=== PATIENT | male | born 1935 | race Caucasian/White ===

== ENCOUNTER 2021-02-19 19:40 | Emergency (ER) | payer MEDICARE, OTHER, SELFPAY ==
--- NOTE | ~2021-02-19 | CT_ITS ---
EXAMINATION: CT cervical spine wo con DATE: 02/19/2021 20:24 INDICATION: Neck pain post fall down stairs TECHNIQUE: Computed tomography (CT) of the cervical spine was performed without intravenous contrast. Automated exposure control and iterative reconstruction technique were employed. The dose-length pro duct was 481.28 mGy-cm. COMPARISON: None FINDINGS: Alignment is normal. Vertebral body heights are normal. No fractures. Severe atlantoaxial osteoarthri tis. Mild disc height loss at C5-C6, C6-C7 T2-T3 and T3-T4. Bilateral multilevel severe cervical face t osteoarthritis and mild to moderate uncovertebral osteoarthritis most prominent at C3-C4 and C4-C5. Together this contributes to mild cervical neural foraminal stenosis at a few levels on both the lef t and right. Atherosclerotic calcific a cyst at the bilateral carotid bulbs. Cervical soft tissues ar e otherwise unremarkable. IMPRESSION: 1. Mild cervical spondylosis. No acute osseous abnormality. Reviewed, dictated and finalized at location A. DBAND ENGINEER
--- NOTE | ~2021-02-19 | XR_ITS ---
EXAMINATION: XR knee RT 3V DATE: 02/19/2021 20:30 INDICATION: Right knee pain and swelling post fall down stairs TECHNIQUE: Anteroposterior, oblique, sunrise and crosstable lateral views of the right knee were obta ined COMPARISON: None. FINDINGS: Alignment is normal. No fracture. 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 Of note joint space narrowing can be underestimated on nonweightbeari ng imaging. No joint effusion/layering lipohemarthrosis. Relatively dense prepatellar soft tissue swe lling with given history of trauma likely represents a small hematoma. IMPRESSION: 1. Likely prepatellar hematoma. No acute osseous abnormality. 2. Tricompartmental osteoarthritis with mild to moderate joint space narrowing in the medial and wagner llofemoral compartments. Reviewed, dictated and finalized at location A. TY BRAND INSPECTOR IMPRESSION: 1. Likely prepatellar hematoma. No acute osseous abnormality. 2. Tricompartmental osteoarthritis with mild to moderate joint space narrowing in the medial and patellofemoral compartments.
--- NOTE | ~2021-02-19 | XR_ITS ---
EXAMINATION: XR ribs LT 2V w CXR 2V DATE: 02/19/2021 20:30 INDICATION: Posterior left lower rib pain post fall TECHNIQUE: A frontal inspiratory view of the chest and 3 views of the left ribs were obtained. COMPARISON: Chest radiograph dated 01/27/2016 FINDINGS: No rib fractures. Lung volumes remain small. Mild bibasilar opacities and favor atelectasis over pneu monia. No pulmonary edema, pleural effusion or pneumothorax. IMPRESSION: 1. No rib fracture. 2. Small lung volumes with mild bibasilar atelectasis. Reviewed, dictated and finalized at location A. OELECTRONICS TECHNICIAN
--- NOTE | ~2021-02-19 | CT_ITS ---
EXAMINATION: CT brain wo con DATE: 02/19/2021 20:24 INDICATION: Head and neck pain post fall down stairs TECHNIQUE: Computed tomography (CT) of the head was performed without intravenous contrast. Sagittal and coronal reconstructions were performed. The mA was adjusted according to patient size. Iterative reconstruction technique was employed. The dose-length product was 681.00 mGy-cm. COMPARISON: None FINDINGS: Likely chronic nasal bone fractures with the nasal bones deviated slightly towards the right and with out evident associated soft tissues welling to suggest acute injury. No other fractures identified. N o acute intracranial hemorrhage, acute infarction or abnormal extra axial fluid collection. There is mild scattered white matter hypoattenuation consistent with chronic small vessel ischemic disease. Sy mmetric prominence of the sulci and ventricles consistent with moderate age-appropriate diffuse cereb ral volume loss. No mass/mass effect. Changes of bilateral intraocular lens replacement. The orbits, paranasal sinuses and mastoid air cells are normal. Intracranial calcified cerebral atherosclerosis i s noted. IMPRESSION: 1. No acute fracture or acute intracranial process. 2. Age-related changes including moderate diffuse volume loss and mild scattered white matter hypoatt enuation consistent with chronic small vessel ischemic disease. Reviewed, dictated and finalized at location A. WASHER IMPRESSION: 1. No acute fracture or acute intracranial process. 2. Age-related changes including moderate diffuse volume loss and mild scattere d white matter hypoattenuation consistent with chronic small vessel ischemic di sease.
[2021-02-19 19:43] VITALS: BP 179/82; PULSE 88; RESP 18; TEMP 36.3; O2SAT 100
--- NOTE | 2021-02-19 20:06 | ED.FALL ---
HPI - Fall General Chief Complaint: Fall Stated Complaint: Fall Time Seen by Provider: 02/19/21 19:53 Source: patient History of Present Illness HPI Narrative: Patient presents after a fall. Patient reports he was walking down the steps and lost his balance. Reports is not unusual for him because he has terrible balance and he fell down 4 steps. Reports he struck his head on the brick he is on a blood thinner he was concerned and so family came to the ER for evaluation. Denies any loss of consciousness he denies any headache he denies any focal numbness or weakness. Reports his primary area of pain is the left side of his mid back and his right knee. Pain is worse with deep inspiration and using his right knee there is no radiation. Denies any shortness of breath, lightheadedness or dizziness. He denies any chest pain or shortness of breath prior to the fall. Related Data Allergies Allergy/AdvReac Type Severity Reaction Status Date / Time No Known Allergies Allergy Mild Verified 05/12/10 11:54 Review of Systems Review of Systems: CONSTITUTIONAL: Denies fever, chills, or sweats. EYES: Denies visual changes, redness, or discharge. ENT: Denies rhinorrhea, congestion, sore throat, or otalgia. CARDIOVASCULAR: Denies chest pain, palpitations, or edema. RESPIRATORY: Denies cough or dyspnea. GASTROINTESTINAL: Denies abdominal pain, nausea, vomiting, or diarrhea. GENITOURINARY: Denies dysuria or hematuria. SKIN: Denies rash or itching. MUSCULOSKELETAL: Reports mid left back pain and right knee pain NEUROLOGIC: Denies headache, numbness, dizziness, or weakness. PSYCHIATRIC: Denies anxiety or depression. All systems reviewed & are unremarkable except as noted in HPI and below PMFSH Past Medical History Medical History (Updated 02/19/21 @ 20:57 by Garcia Albarran MD) Hypertension Social History Social History (Updated 02/19/21 @ 20:09 by Garcia Albarran MD) Substance use: never Exam Narrative: GENERAL: Well-appearing, well-nourished, and in no acute distress. HEAD: Normocephalic, large superficial abrasion on the forehead EYES: PERRLA and EOMI. ENT: Nares clear, no rhinorrhea or epistaxis. Mucous membranes moist. No fractured teeth NECK: Supple. No masses. No midline neck pain CHEST: Clear to auscultation. No respiratory distress. No wheezes rales or rhonchi HEART: Regular rate and rhythm. No murmur heard. Normal peripheral pulses. ABDOMEN: Soft, nontender, nondistended, normal active bowel sounds. EXTREMITIES: Normal range of motion. Minimal diffuse pain on the right knee no obvious deformity or focal knee pain Back: Lateral mid back pain around ribs 9 through 12 no obvious deformity no crepitus no ecchymoses SKIN: Warm, dry, no rash. NEURO: No focal deficits. Alert and oriented x3. PSYCH: Normal mood and affect. Course Reevaluation(s) Reevaluation #1: Patient resting comfortably is ambulating without difficulty imaging reviewed with patient. Patient comfortable outpatient plan. Date: 02/19/21 Time: 20:55 Vital Signs Vital signs: Vital Signs Temperature 36.3 C L 02/19/21 19:43 Pulse Rate 88 02/19/21 19:43 Respiratory Rate 18 02/19/21 19:43 Blood Pressure 179/82 H 02/19/21 19:43 Pulse Oximetry 100 02/19/21 19:43 Temperature 36.3 C L 02/19/21 19:43 Pulse Rate 80 02/19/21 21:11 Respiratory Rate 18 02/19/21 21:11 Blood Pressure 115/69 02/19/21 21:11 Pulse Oximetry 100 02/19/21 21:11 MDM - Fall MDM Narrative Medical decision making narrative: H&P as above, vss, pt looks clinically well, exam superficial abrasion no focal neurological deficits soft tissue tenderness, imaging unremarkable for acute process, additional labs/img considered, symptomatic relief available as needed, on reevaluation pt continues to looks clinically well. Suspect mechanical event with soft tissue injuries, dns intracranial hemorrhage, fracture, cord compromise, pneumothorax. plan to tx/monitor as op w/
[2021-02-19 20:47] VITALS: PULSE 81; RESP 16; O2SAT 98
[2021-02-19 21:11] VITALS: BP 115/69; PULSE 80; RESP 18; O2SAT 100
== END 2021-02-19 21:13 | disposition home or self-care (01) ==
PROVIDERS: Emergency Provider Emergency Medicine; PCP Otolaryngology
DX: S20.222A Contusion of left back wall of thorax, initial encounter (principal); S00.81XA Abrasion of other part of head, initial encounter; I10 Essential (primary) hypertension; M47.812 Spondylosis without myelopathy or radiculopathy, cervical region; M17.11 Unilateral primary osteoarthritis, right knee; Z79.01 Long term (current) use of anticoagulants; W10.9XXA Fall (on) (from) unspecified stairs and steps, initial encounter
CPT/HCPCS: 70450; 71046; 71100; 72125; 73562; 99284

== ENCOUNTER 2022-11-29 09:22 | Outpatient (CLI) | payer MEDICARE, SELFPAY ==
[2022-11-29 15:16] LABS: Basophils Absolute Auto 0.1 K/mm3 (0.0-0.1); Basophils Percent Auto 0.8 % (0.2-1.2); Eosinophils Absolute Auto 0.2 K/mm3 (0-0.3); Eosinophils Percent Auto 2.4 % (0-4.4); Hematocrit 43.9 % (42.0-52.0); Hemoglobin 14.6 g/dL (14.0-18.0); Immature Granulocyte Absolute 0.02 K/mm3 (0.00-0.031); Immature Granulocyte Percent A 0.3 % (0-0.5); Lymphocytes Absolute Auto 2.92 K/mm3 (0.9-3.2); Lymphocytes Percent Auto 38.3 % (18.3-44.2); Mean Corpuscular HGB Conc 33.3 g/dl (32-36); Mean Corpuscular Hemoglobin 32.2 pg (26-34); Mean Corpuscular Volume 96.9 fl (80-100); Mean Platelet Volume 12.1 fl (7.4-10.4); Monocytes Absolute Auto 0.6 K/mm3 (0.1-0.6); Monocytes Percent Auto 8.1 % (2.6-8.5); Neutrophils Absolute Auto 3.8 K/mm3 (1.3-6.7); Neutrophils Percent Auto 50.1 % (45.5-73.1); Platelet Count Result 204 k/mm3 (150-375); Red Blood Count 4.53 M/mm3 (4.6-6.20); Red Cell Distribution Width 13.1 % (11.5-14.5); White Blood Count 7.6 K/mm3 (4.5-10.0)
[2022-11-29 15:58] LABS: Alanine Aminotransferase 27 U/L (6-50); Albumin Level 4.4 g/dL (3.5-5.1); Alkaline Phosphatase 114 U/L (38-126); Anion Gap 9 mmol/L (8-16); Aspartate Amino Transferase 36 U/L (17-59); Bilirubin,Total 1.1 mg/dL (0.2-1.3); Blood Urea Nitrogen 21 mg/dL (9-20); Calcium 9.1 mg/dL (8.4-10.2); Carbon Dioxide 29 mmol/L (22-30); Chloride 103 mmol/L (98-107); Cholesterol 189 mg/dL (0-200); Creatine Kinase 94 U/L (55-170); Erythrocyte Sedimentation Rate 21 mm/hr (0-20); Estimated Glomerular Filt Rate > 60; Glucose 198 mg/dL (65-110); HDL Direct 39 mg/dL; Potassium 4.1 mmol/L (3.4-5.0); Sodium 141 mmol/L (137-145); Triglycerides 196 mg/dL (<150)
[2022-11-29 16:13] LABS: LDL Cholesterol Direct 101 mg/dL
[2022-11-29 19:12] LABS: Creatinine Urine 181.3 mg/dL
[2022-11-29 19:15] LABS: Microalbumin Urine Random 39.9 mg/L (0-16.7)
[2022-11-29 19:36] LABS: Hemoglobin A1C 8.3 % (<5.7)
== END 2022-11-29 09:23 | disposition home or self-care (01) ==
PROVIDERS: PCP Internal Medicine; Visit Provider Internal Medicine
DX: E11.9 Type 2 diabetes mellitus without complications (principal); I10 Essential (primary) hypertension; I48.91 Unspecified atrial fibrillation; R26.9 Unspecified abnormalities of gait and mobility; Z79.01 Long term (current) use of anticoagulants; Z79.4 Long term (current) use of insulin; M25.50 Pain in unspecified joint; M62.81 Muscle weakness (generalized)
CPT/HCPCS: 36415; 80053; 80061; 82043; 82550; 83036; 84443; 85025; 85652

== ENCOUNTER 2022-11-29 09:48 | Outpatient (CLI) | payer MEDICARE, SELFPAY ==
--- NOTE | ~2022-11-29 | XR_ITS ---
AP and lateral views of the bilateral hips Clinical history: Pain Findings: No acute fracture or dislocation is seen. Osseous there is severe osteoarthritis of the rig ht hip joint, with joint space narrowing, osteophyte formation, and reactive sclerosis. There is mild to moderate degenerative change of the left hip joint.. Soft tissues are unremarkable. 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 Mild to moderate degenerative change of the left hip joint. Reviewed, dictated and finalized at location M. 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 Mild to moderate degenerative change of the left hip joint.
--- NOTE | ~2022-11-29 | XR_ITS ---
Right Knee Technique: AP and lateral views were obtained. Clinical History: Pain Findings: No fracture or dislocation is seen. There is mild spurring at the medial joint line and pat geri. There is probable mild medial compartment narrowing. Soft tissues are unremarkable. No joint ef fusion is seen. Impression: Mild to moderate degenerative change, as above. Reviewed, dictated and finalized at location . Impression: Mild to moderate degenerative change, as above.
--- NOTE | ~2022-11-29 | XR_ITS ---
Left Knee Technique: AP and lateral views were obtained. Clinical History: Pain Findings: No fracture or dislocation is seen. There is mild tricompartmental spurring. There is media l compartment narrowing Soft tissues are unremarkable. No joint effusion is seen. Impression: Mild to moderate degenerative change, as above. Reviewed, dictated and finalized at location . Impression: Mild to moderate degenerative change, as above.
--- NOTE | ~2022-11-29 | XR_ITS ---
Thoracic spine: Clinical Indication: Back pain AP and lateral views were performed. No fracture is seen. There is normal alignment of the vertebrae. The intervertebral disc spaces appe ar normal. Paravertebral soft tissues appear normal. Impression: No significant abnormalities noted. Reviewed, dictated and finalized at [facility]. Impression: No significant abnormalities noted.
== END 2022-11-29 09:49 ==
PROVIDERS: PCP Internal Medicine; Visit Provider Internal Medicine
DX: R26.9 Unspecified abnormalities of gait and mobility (principal); M40.00 Postural kyphosis, site unspecified; M16.0 Bilateral primary osteoarthritis of hip; M17.0 Bilateral primary osteoarthritis of knee
CPT/HCPCS: 72072; 73521; 73560

== ENCOUNTER 2023-02-16 14:45 | Outpatient (RCR) | payer MEDICARE, SELFPAY ==
--- NOTE | 2022-12-14 13:46 | OPREHPOC ---
Outpatient Therapy Plan of Care This is a Multidisciplinary Plan of Care that may contain components documented by all disciplines (PT, OT, and ST.) PT Problem 1 PT Problem #1 Knowledge Deficit PT Goal 1 Goal 1* indep with HEP PT Problem 2 PT Problem #2 Pain PT Goal 1 Goal 1* monitor pain with progression of strength and activity level PT Problem 3 PT Problem #3 Impaired Flexibility PT Goal 1 Goal 1* R supine hip flexion 90' hamstring length with supine SLR 2* R 55' 3* L 55' PT Problem 4 PT Problem #4 Impaired Strength PT Goal 1 Goal 1* sit/stand transfer without use of UE, from 18 seat x 5 reps 2* 20 reps of R and L LE strengthening exercises in supine 3* sitting L ankle circles x 15 reps with good control of motion PT Problem 5 PT Problem #5 Impaired Functional Mobil PT Goal 1 Goal 1* 5 reps sit/stand transfer in 16 seconds 2* 2 minute walking test distance of 375' 3* pt report NO falls 4* up/down 4 steps with 1 hand railing
--- NOTE | 2022-12-14 13:46 | PTOPEVAL1 ---
Assessment and note entered by Evie Orellana, PT Evaluation Information Assessment Status Evaluation Diagnosis gait abnormalities and leg weakness Onset about 6 months Subjective Information gradual increase in leg weakness and balance; no falls, but have a fear of falling; xrays: R hip severe OA, L hip mild to mod OA; bilateral knee mild to moderate degenerative changes; Activity: does not use assistive device; indep with cooking, cleaning, driving, self care; no exercise equipment at home; have basement at home but do not go downstairs- not need to go there; GOAL: walk more normal and balance better with walking; Reported Pain Level Pain Score 0: Self Report Additional Pain Score Comments no pain in legs, sensation is good in legs; during testing of ROM and strength - reported pain in R hip and L knee Assessment PT Clinical Summary Yomi has the diagnosis of decreased gait and balance, LE weakness. He reports he has not had any falls, but unsteady with walking. And does not do any regular exercises or fitness activity, other than his home chores. His recent xrays report degenerative changes in both hips and both knees. With the evaluation he has: decreased ROM of R hip flexion and IR and L knee extension; weakness of both legs: hips, knees and ankles, with most weakness of L ankle, when compared to R; unable to perform sit/stand without UE use; poor walking pattern. Skilled PT services are indicated to increase LE strength, gait and balance skills, to improve mobility and safety. Education for home exercises and assistive devices. Wheeled walker was recommended to pt, but he was not receptive to using one. Plan of Care Interventions Gait Training,Neuro Re-education,Patient Education,Therapeutic Activities,Therapeutic Exercise PT Services Indicated Yes Treatment Frequency and 2x/wk for 5 weeks Duration The
--- NOTE | 2023-01-18 13:16 | OPREHPOC ---
Outpatient Therapy Plan of Care This is a Multidisciplinary Plan of Care that may contain components documented by all disciplines (PT, OT, and ST.) PT Problem 1 PT Problem #1 Knowledge Deficit PT Goal 1 Goal 1* indep with HEP Progress Met Comment 01-18-23 progress met goal continue to progress education PT Problem 2 PT Problem #2 Pain PT Goal 1 Goal 1* monitor pain with progression of strength and activity level Progress Met Comment 01-18-23 progress met goal continue to montior pain in R hip PT Problem 3 PT Problem #3 Impaired Flexibility PT Goal 1 Goal 1* R supine hip flexion 90' hamstring length with supine SLR 2* R 55' 3* L 55' Progress Not Met Comment 01-18-23 progress goals not met; continue towards goals PT Problem 4 PT Problem #4 Impaired Strength PT Goal 1 Goal 1* sit/stand transfer without use of UE, from 18 seat x 5 reps 2* 20 reps of R and L LE strengthening exercises in supine 3* sitting L ankle circles x 15 reps with good control of motion Progress Partially Met Comment 01-18-23 progress met goal 2--progress goal to 20 reps standing exercises with 1 UE support continue towards goals 1 & 3 PT Problem 5 PT Problem #5 Impaired Functional Mobil PT Goal 1 Goal 1* 5 reps sit/stand transfer in 16 seconds 2* 2 minute walking test distance of 375' 3* pt report NO falls 4* up/down 4 steps with 1 hand railing Progress Partially Met Comment 01-18-23 progress met goals 3,4 continue towards goals 1 & 2
--- NOTE | 2023-01-18 13:16 | PTOPPROG ---
Assessment and note entered by Evie Orellana, PT Evaluation Information Assessment Status Progress Diagnosis gait abnormalities and leg weakness Onset about 6 months Subjective Information legs are stronger; walking better; have not had any falls since starting therapy; able to walk about half a mile; have been doing the exercises most of the days; does not want to use a cane or walker--not need one; Assessment PT Clinical Summary Yomi has received 9 PT sessions. Compared to initial evaluation: continues to have decreased flexibility of R hip flexion and bilateral hamstrings; improved with sit/stand 5 reps time 22 to 18 seconds; 2 minute walking test distance improved 35'; improved with strength of R and L LE's; Tinetti balance/gait score is 18/28 = high risk for falls; education for HEP. Recommended he use a wheeled walker or cane for safety--but he is not interested in using. The goals were partially met. Continue PT treatment to further increase LE strength, gait and balance skills. Plan of Care Interventions Gait Training,Neuro Re-education,Patient Education,Therapeutic Activities,Therapeutic Exercise PT Services Indicated Yes Treatment Frequency and 2x/wk for 3 weeks Duration These treatments will address the objective and functional deficits as defined above. The patient will be advanced safely and appropriately in order for the patient to progress towards his/her prior level of function. Additional exercises will be introduced and as well as a comprehensive home exercise program upon discharge, if needed, ?to ensure carryover of functional gains achieved in the clinic. This treatment plan has been reviewed and agreement upon by the patient.
--- NOTE | 2023-02-16 15:35 | PTOPDC ---
Assessment and note entered by Evie Orellana, PT DIscharge Information Assessment Status Discharge Diagnosis gait abnormalities and leg weakness Onset about 6 months Subjective Information wants to start back to the fitness center for some exercises; does the home exercises some times, not good to do every day, knows he should; Reported Pain Level Pain Score 0: Self Report Assessment PT Clinical Summary Yomi has received 14 PT sessions. Compared to the last reevaluation: 2 minute walking test distance has decreased by 55'; 5 reps sit/stand time decreased 1 sec; Tinetti balance improved by 1 point; increase sit/stand ability, can perform without UE use but it is a struggle and requires multiple attempts to perform; R hip and bilateral hamstring flexibility is the same. He continues to walk without an assistive device and a poor gait pattern. He has been educated and walked with a cane and wheeled walker, with improved balance and gait pattern. But, he is not interested in using an assistive device. The goals were partially met. Discharge from PT services. He is to continue with his home exercises. Plan of Care PT Services Indicated No
== END 2023-02-16 16:08 | disposition home or self-care (01) ==
LOC: ANHPT 14:45
PROVIDERS: PCP Internal Medicine; Visit Provider Internal Medicine
DX: M25.50 Pain in unspecified joint (principal); M62.81 Muscle weakness (generalized); R26.9 Unspecified abnormalities of gait and mobility
CPT/HCPCS: 97110; 97112; 97116; 97161; 97530

== ENCOUNTER 2023-05-26 10:47 | Outpatient (CLI) | payer MEDICARE, SELFPAY ==
[2023-05-26 19:46] LABS: Basophils Absolute Auto 0.1 K/mm3 (0.0-0.1); Basophils Percent Auto 1.1 % (0.2-1.2); Eosinophils Absolute Auto 0.2 K/mm3 (0-0.3); Eosinophils Percent Auto 2.1 % (0-4.4); Hematocrit 44.2 % (42.0-52.0); Hemoglobin 14.3 g/dL (14.0-18.0); Immature Granulocyte Absolute 0.02 K/mm3 (0.00-0.031); Immature Granulocyte Percent A 0.2 % (0-0.5); Lymphocytes Absolute Auto 2.61 K/mm3 (0.9-3.2); Lymphocytes Percent Auto 31.1 % (18.3-44.2); Mean Corpuscular HGB Conc 32.4 g/dl (32-36); Mean Corpuscular Hemoglobin 30.6 pg (26-34); Mean Corpuscular Volume 94.6 fl (80-100); Mean Platelet Volume 11.6 fl (7.4-10.4); Monocytes Absolute Auto 0.6 K/mm3 (0.1-0.6); Monocytes Percent Auto 6.7 % (2.6-8.5); Neutrophils Absolute Auto 4.9 K/mm3 (1.3-6.7); Neutrophils Percent Auto 58.8 % (45.5-73.1); Platelet Count Result 250 k/mm3 (150-375); Red Blood Count 4.67 M/mm3 (4.6-6.20); Red Cell Distribution Width 13.2 % (11.5-14.5); White Blood Count 8.4 K/mm3 (4.5-10.0)
[2023-05-26 20:46] LABS: Alanine Aminotransferase 35 U/L (6-50); Albumin Level 4.4 g/dL (3.5-5.1); Alkaline Phosphatase 159 U/L (38-126); Anion Gap 8 mmol/L (8-16); Aspartate Amino Transferase 43 U/L (17-59); Bilirubin,Total 1.1 mg/dL (0.2-1.3); Blood Urea Nitrogen 20 mg/dL (9-20); Calcium 8.9 mg/dL (8.4-10.2); Carbon Dioxide 29 mmol/L (22-30); Chloride 102 mmol/L (98-107); Estimated Glomerular Filt Rate > 60; Glucose 170 mg/dL (65-110); Potassium 4.1 mmol/L (3.4-5.0); Sodium 139 mmol/L (137-145)
[2023-05-26 21:07] LABS: Hemoglobin A1C 9.3 % (<5.7)
== END 2023-05-26 10:48 | disposition home or self-care (01) ==
LOC: ANHGOSHLAB 10:48
PROVIDERS: PCP Internal Medicine; Visit Provider Internal Medicine
DX: E11.9 Type 2 diabetes mellitus without complications (principal); I48.0 Paroxysmal atrial fibrillation; Z79.01 Long term (current) use of anticoagulants; Z79.4 Long term (current) use of insulin; I10 Essential (primary) hypertension
CPT/HCPCS: 36415; 80053; 83036; 85025

== ENCOUNTER 2024-01-08 10:04 | Outpatient (CLI) | payer MEDICARE, SELFPAY ==
[2024-01-08 13:24] LABS: Alanine Aminotransferase 15 U/L (6-50); Albumin Level 4.3 g/dL (3.5-5.1); Alkaline Phosphatase 95 U/L (38-126); Anion Gap 6 mmol/L (4-12); Aspartate Amino Transferase 43 U/L (17-59); Bilirubin,Total 1.3 mg/dL (0.2-1.3); Blood Urea Nitrogen 17 mg/dL (9-20); CRP 0.9 mg/dL (<1.0); Calcium 8.8 mg/dL (8.4-10.2); Carbon Dioxide 31 mmol/L (22-30); Chloride 102 mmol/L (98-107); Estimated Glomerular Filt Rate > 60; Glucose 160 mg/dL (65-110); Potassium 4.2 mmol/L (3.4-5.0); Sodium 139 mmol/L (137-145)
[2024-01-08 14:18] LABS: Folic Acid 14.8 ng/mL (2.76->20)
[2024-01-08 15:04] LABS: Hemoglobin A1C 6.8 % (<5.7)
[2024-01-14 08:44] LABS: Testosterone Free 15.5 pg/mL (30.0-135.0); Testosterone Total 121 ng/dL (250-1100)
== END 2024-01-08 10:05 | disposition home or self-care (01) ==
PROVIDERS: PCP Internal Medicine; Visit Provider Internal Medicine
DX: R26.9 Unspecified abnormalities of gait and mobility (principal); E11.9 Type 2 diabetes mellitus without complications; M62.81 Muscle weakness (generalized); I10 Essential (primary) hypertension; I48.91 Unspecified atrial fibrillation; Z79.01 Long term (current) use of anticoagulants; M25.50 Pain in unspecified joint
CPT/HCPCS: 36415; 80053; 82607; 82746; 83036; 84402; 84403; 86140

== ENCOUNTER 2024-08-13 14:01 | Outpatient (CLI) | payer MEDICARE, SELFPAY ==
--- OUTSIDE RECORDS SUMMARY | 2024-08-13 14:18 | XMS_ITS | Patient Health Record ---
Author Organization [facility] jairo Address [address] [place] [address] Care Team Providers Care Veneer Slicing Machine Operator Name Role Phone Keyanna Diamond MD Primary Care Provider Unavailesther e Allergies No Known Allergies Reason For Referral No Information Medications Medication SIG (Take, Route, Fr equency, Duration) Notes Start Date End Date Status Ibuprofen 200 mg take 1 capsule (200 mg) by oral route every 6 hours as needed for 120 days Oral 4 for 120 Active Amiodarone HCl 200 MG TAKE 2 TABLETS BY MOUTH EVERY 12 HOURS Oral 08/27/2019 Active Lasix 40 MG take 1 tablet (40 mg ) by oral route once daily Oral 1 for 30 11/08/2016 A ctive Eliquis 5 MG TAKE 1 TABLET BY ARA TH TWICE DAILY Oral 01/21/2019 Active Problems Problem Type SNOMED Code ICD Code Onset Dates Problem Status W/U Status Risk Notes Problem Cardiomyopathy (42276094) Cardiomyopathy in other diseases classified elsewhere (425.8) Active confirmed Problem Pneumonia (046270843) Pneumonia, organism unspecified (486) 2015 Active confirmed Problem Hypothyroidism (81141540) Hypothyroidism, unspecified (E03.9) Active confirmed Problem Pure hypercholesterolemia (784025845) Pure hypercholesterolemia (E78.0) 2015 Active confirmed 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, 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 Problem Osteoarthritis (015168941) Unspecified osteoarthritis, unspecified site (M19.90) 2014 Active confirmed Problem Right bundle branch block (36408236) Unspecified right bundle-branch block (I45.10) Active confirmed Problem Atrial fibrillation (89334041) Unspecified atrial fibrillation (I48.91) Active confirmed Plan Of Treatment No Information Insurance Providers Payer Name Payer Address Payer Phone Subscriber Number Group Number Insured Name Patient Relationship to Insured Coverage Start Date Coverage End Date DO NOT USE [place] [id number] Gr[employer] Leary Self - patient is the insured 7 [employer] [place] [address] [address] [id number] Plan G Grupo Leary Self - patient is the insured 7 DO NOT USE [place] [id number] Gr[employer] Leary Self - patient is the insured [address] [place] [address] [id number] [employer] Leary Self - patient is the insured [facility] [address] [place] [address] [id number] Gr[employer] Leary Self - patient is the insured 3 Medical (General) History Surgical History Surgery Date(Month/Year) Cardiac cath; 2011-09-22 Cardioversion, Date of Procedure: 6; 2016-03-29
--- OUTSIDE RECORDS SUMMARY | 2024-08-13 14:18 | XMS_ITS | Clinical Summary ---
Author Organization [facility] Address [address] [place] [address] Care Team Providers Care Consumer Education Specialist Name Role Phone Jeronimo Brito MD Unavailable [phone] Briana BARDALES MD, Montana Coughlin Primary Care Provider Allergies Active Allergy Reactions Criticality Noted Date Comments Metformin Diarrhea Low 04/15/2013 Medications levothyroxine (SYNTHROID) 100 MCG tablet Take 1 tablet (100 mcg total) by mouth every morning. 30 tablet 1 10/17/2021 Active acetaminophen (TYLENOL) 325 MG tablet Take 2 tablets (650 mg total) by mouth every 6 (six) hours as needed for Pain. Active atorvastatin (LIPITOR) 40 MG tablet Take 1 tablet (40 mg total) by mouth nightly at bedtime. at bedtime 90 tablet 11/16/2022 Active magnesium oxide (MAG-OX) 400 (240 Mg) MG tablet Take 1 tablet (400 mg total) by mouth daily. 30 tablet 11/16/2022 Active furosemide (LASIX) 40 MG tabletIndicatio ns:Chronic systolic heart failure (CMS/HCC HHS/HCC) Take 1 tablet by mouth twice daily 60 tablet 5 08/08/2023 Active metoprolol succinate ER (TOPROL-XL) 25 MG 24 hr tablet Take 1 tablet by mouth once daily 90 tablet 1 01/29/2024 Active ELIQUIS 5 MG tablet Take 1 tablet (5 mg total) by mouth 2 (two) times daily. 180 tablet 1 02/20/2024 Active lisinopril (PRINIVIL) 10 MG tablet Take 1 tablet by mouth once daily 90 tablet 1 03/19/2024 Active LANTUS SOLOSTAR 100 UNIT/ML injection (PEN) Inject 15 Units into the skin nightly at bedtime. 03/03/2024 Active Active Problems Problem Noted Date Diagnosed Date SSS (sick sinus syndrome) ([facility]) 10/01 Overview (10/18/2021): CHRISTAL MOORE METAL FABRICATOR APPRENTICE PACEMAKER IMPLANTED 10/15/21 FOR SSS S/P biventricular cardiac pacemaker procedure Overview (10/18/2021): CHRISTAL MOORE METAL FABRICATOR APPRENTICE PACEMAKER IMPLANTED 10/15/21 FOR SSS Shortness of breath 10/08/2021 Atrial fibrillation with rap id ventricular response ([facility]) 06/07/2021 Overview (10/08/2021): Last Assessment & Plan: Back to Rate Controlled Asymptomatic Afib. On Anticoagulation and Rate Controlled Medication. Recommend aggressive control of Diabetes with insulin. Nonischemic cardiomyopathy ([facility]) Uncontrolled type 2 diabetes mellitus with hyperglycemia ([facility]) 10/26/2020 Overview (10/08/2021): Last Assessment & Plan: Overall Condition Chronic Condition: Uncontrolled. Treatment: New Medication: Add Jardiance to Tradjenta as prescribed below. Follow up in 1 month Last Assessment & Plan: Overall Condition Chronic Condition: Uncontrolled. Treatment: Recommended Therapeutic Lifestyle Modification and Medication Changes: REduce Insulin to 20 units as FBS around close to 100. Follow up in 3 months Coronavirus infection 10/06/2020 Chronic systolic heart failure ([facility]) 09/30/2020 Overview (01/19/2021): Last Assessment & Plan: Chronic, stability unknown-advised follow-up this week with compound finisher and ordered chest xray. High risk medication use 09/30/2020 Overview (01/19/2021): Last Assessment & Plan: Ordered CMP due to diuretic therapy, reportedly taking dose higher than prescribed. Leg swelling 09/30/2020 Overview (01/19/2021): Last Assessment & Plan: Chronic bilateral leg swelling, worsening per patient, but upon review of records, appears stable-considered increasing furosemide by 40 mg daily until he stated he was taking 2-40 mg tablets BID, initially informed rn medical inpatient services AND provider at today's visit that he was taking 1-40 mg tablet BID (at his most recent cardiology visit in 04/2020, it was documented that he was taking 1-40 mg tablet once daily, however historically had taken BID prior to that visit, also documented at that same visit that he had refused lipid-lowering medication and stopped his levothyroxine against medical advice). Due to uncertainty regarding what dose of furosemide patient is actually taking, advised to call compound finisher today for an appointment this week to discuss leg swelling and medications and ordered CMP and chest xray to be done today. Also instructed to elevate lower extremities when at rest, eat a low sodium diet, and to stay hydrated, ER for worsening symptoms or new symptoms of shortness of breath, chest pain/tightness, palpitations, cough, wheezing, abdominal pain/bloating, back pain, or worsening leg swelling. Permanent atrial fibrillation ([facility]) 05/05/2020 Hyperlipidemia, mixed 05/05/2020 Essential (primary) hypertension 05/05/2020 manager terminal current use of anticoagulant therapy 0 05/05/2020 Other specified hypothyroidism 05/05/2020 NSTEMI (non-ST elevated myoc ardial infarction) ([facility]) 09/30/2019 Cellulitis of right lower extremity 07/21/2017 Pneumonia of left lower lobe due to infectious o rganism 07/21/2017 Vitamin D deficiency 07/17/2013 Encounters Date Type Department Care Team Description 07/10/2024 2:30 PM CDT Office Visit [facility] Esther mcbride [facility], [address] [address] Lashell Babcock APRN Hypertension; Follow Up (6 mo.) 07/10/2024 Travel 07/08/2024 Scan [facility] SRVCS Scanned, Doc Med Group Dilated Eye Exam (SCAN) 06/25/2024 Travel 06/24/2024 2:10 PM CDT Allied Health/Nurse Visit [place] [address], [address] [address] [place] [address] Brenda Ayon MD Remote Device Check 05/24/2024 4:11 PM CONSTRUCTION QUALITY CONTROL MANAGER - 05/24/2024 6:08 PM CONSTRUCTION QUALITY CONTROL MANAGER Hospital Encounter [facility] [address] [place] [address] Tereso Schuster, JEFFREY Cough; URI Discharge Disposition: Home or Self Care (Routine Discharge) 05/24/2024 Travel from Last 3 Months Immunizations Immunization Administration Dates Next Due PFIZER COVID-19 (ORIGINAL FO RMULATION, PURPLE CAP) mRNA, LNP-S, PF, 30 MCG/0.3 ML DOSE 06/14/2020 Family History Medical History Relation Comments Diabetes Brother Obesity Brother Stroke Father Hyperlipidemia Mother tobacco abuse Sister Relation Status Comments Brother Father Maternal Grandfather Maternal Grandmother Mother Paternal Grandfather Paternal Grandmother Sister Alive Social History Tobacco Use Types Packs/Day Years Used Date Smoking Tobacco: Former Pipe Q uit: 1980 Smokeless Tobacco: Never Tobacco Cessation:Counseling Given: Not Answered Alcohol Use Standard Drinks/Week Comments Yes 0 (1 standard drink = 0.6 oz pur e alcohol) rare AUDIT-C Answer Date Recorded Q1: How often do you have a drink containing alc ohol? Monthly or less 10/01/2019 Average Number of Drinks Not on file 020 Frequency of Binge Drinking Not on file 09/03 Sex and Gender Information Value Date Recorded Sex Assigned at Male 05/24/2024 4:06 PM CONSTRUCTION QUALITY CONTROL MANAGER Legal Sex Male 7:33 PM CDT Gender Identity Not on file Sexual Orientation Not on file Last Filed Vital Signs Vital Sign Reading Time Taken Comments Blood Pressure 140/80 07/10/2024 2:19 PM CDT Pulse 89 07/10/2024 2:19 PM CDT Temperature 37.1 C (98.8 F) 05/24/2024 4:19 PM CONSTRUCTION QUALITY CONTROL MANAGER Respiratory Rate 16 05/24/2024 4:19 PM CONSTRUCTION QUALITY CONTROL MANAGER Oxygen Saturation 96% 07/10/2024 2:19 PM CDT Inhaled Oxygen Concentration - - Weight 88 kg (194 lb) 07/10/2024 2:19 PM CDT Height 177.8 cm (5' 10 ) 07/10/2024 2:19 PM CDT Body Mass Index 27.84 07/10/2024 2:19 PM CDT Plan of Treatment Upcoming Encounters Date Type Department Care Team (Late st Contact Info) Description 09/23/2024 3:10 PM CDT Allied Health/Nurse Visit [place] [facility], [facility] [address] [place] [address] Jeronimo Brito MD Three [facility]. [facility] [address] [place] [address] Brenda Ayon MD [facility]. [facility] [address] [place] [address] 04/09/2025 1:30 PM CONSTRUCTION QUALITY CONTROL MANAGER Office Visit [facility], [facility] [address] [place] [address] Brenda Ayon MD [facility]. [facility] [address] [place] [address] Health Maintenance Due Date Last Done Comments ASCVD Statin 1937 DTaP, Tdap and Td Vaccines (1 - Tdap) 1956 Pneumococcal Vaccine: 50+ Years (1 of 2 - PCV) 1956 Zoster Vaccines (1 of 2) 11/27/1987 Annual Medicare Wellness Visit 2002 RSV Immunization or 60+ Years (1 - 1-dose 75+ series) 2012 Hemoglobin A1C 04/11/2022 10/09/2021, 03/0 11/2021, 10/08/2020, Additional history exists ASCVD LDL 10/09/2022 10/09/2021, 11/2020, 10/01/2019 Lipid Panel 10/09/2022 10/09/2021, 030 11/2021, 10/08/2020, Additional history exists COVID-19 Vaccine ( season) 2023 06/14/2020 PHQ-2 (Physician [place]) 04/03/2024 Diabetes: Retinopathy Eye Exam 07/08/2026 07/08/2024, 07/05/2023 Meningococcal B Vaccine Aged Out No l onger eligible based on patient's age to complete this topic Meningococcal Vaccine Aged Out No burke ashely eligible based on patient's age to complete this topic RSV Immunizations Under 20 Months Aged Out No longer eligible based on patient's age to complete this topic Goals Goal Patient Goal Type Associated Problems Recent Progress Patient-Stated? Author Family - family caregiver with be involved in care transitions and discharge planning General No Ricardo Merrill, RN Medical Devices Implanted Type Area Lockstitch Front Edge Tape Sewer Device Identifier Shelf Expiration Date Model / Serial / Lot Rv Lead- 2 Implanted: by Barry Paniagua MD (Quantity not on file) Lead Implant [employer] C[employer] RHY[employer]M AND HEART FAILURE - DIV M [id number] 08/11/2023 [id number] / [id number] / Cs / Lv Lead- 2 Implanted: by Barry Paniagua MD (Quantity not on file) Lead Implant [employer] CARDIAC RHYTHM AND HEART FAILURE - DIV M [id number] 07/29/2023 [id number] / [id number] / Christal-Pacemaker -10/15/2021 Implanted: by Barry Paniagua MD (Quantity not on file) Pacemaker [employer] CARDIAC RHYTHM AND HEART FAILURE - DIV M [id number] 02/28/2023 [id number] / [id number] S / Procedures Procedure Name Priority Date/Time Associated Diagnosis Comments DIABETIC RETINOPATHY EXAM (NEGATIVE)(SCAN ORDER) Routine 07/08/2024 CORONAVIRUS (COVID 19) STAT 05/24/2024 4:48 PM CONSTRUCTION QUALITY CONTROL MANAGER INFLUENZA A & B STAT 05/24/2024 4:48 PM CONSTRUCTION QUALITY CONTROL MANAGER XR CHEST PA+LAT STAT 05/24/2024 4:41 PM CONSTRUCTION QUALITY CONTROL MANAGER LIPID PANEL Routine 10/09/2021 7:16 AM CDT HEMOGLOBIN, GLYCOSYLATED Routine 10/09/2021 7:16 AM CDT from Last 3 Months or Most Recently Relevant to Health Maintenance Results * DIABETIC RETINOPATHY EXAM (NEGATIVE) (07/08/2024) us Doc Med Group Scanned SCANNING Final Resu lt Performing Organization Address [facility]/ZIP Co de Phone Number [facility] ON[facility] * CORONAVIRUS (COVID 19) (05/24/2024 4:48 PM CONSTRUCTION QUALITY CONTROL MANAGER) CORONAVIRUS SARS COV 2 RNA NEGATIVE NEGATIVE 05/24/2024 5:09 PM CONSTRUCTION QUALITY CONTROL MANAGER [facility] Comment: NEGATIVE RESULTS DO NOT RULE OUT COVID 19 AND SHOULD NOT BE USED THE SOLE BASIS FOR TREATMENT OR PATIENT MANAGEMENT DECISIONS, INCLUDING INFECTION CONTROL DECISIONS. NEGATIVE RESULTS SHOULD BE CONSIDERED IN THE CONTEXT OF A PATIENT'S RECENT EXPOSURES, HISTORY AND THE PRESENCE OF CLINICAL SIGNS AND SYMPTOMS CONSISTENT WITH COVID 19. THE ID NOW COVID-19 2.0 TEST HAS BEEN AUTHORIZED BY THE FDA UNDER EAU FOR USE BY AUTHORIZED LABORATORIES. PERFORMED BY NUCLEIC ACID AMPLIFICATION FOR MOLECULAR QUALITATIVE DETECTION OF SARS-COV-2. SPECIMEN TYPE NASAL 05/24/2024 4:48 PM CONSTRUCTION QUALITY CONTROL MANAGER [facility] NASAL STRUCTURE / Unknown 05/24/2024 4:48 PM CONSTRUCTION QUALITY CONTROL MANAGER us Tereso Schuster NP MICROBIOLOGY - GENERAL KEVIN RENTERIA Final Result Performing Organization Address City/[facility]/ZIP Co de Phone Number [facility] [address] [place] [id number], [place] * (ABNORMAL) INFLUENZA A & B, RAPID (05/24/2024 4:48 PM CONSTRUCTION QUALITY CONTROL MANAGER) SPECIMEN TYPE NASOPHARYNGEAL SWAB 05/24/2024 4:58 PM CONSTRUCTION QUALITY CONTROL MANAGER [facility] INFLUENZA A POSITIVE(A) NEGATIVE 05/24/2024 5:13 PM CONSTRUCTION QUALITY CONTROL MANAGER [facility] INFLUENZA B NEGATIVE NEGATIVE 05/24/2024 5:13 PM CONSTRUCTION QUALITY CONTROL MANAGER [facility] Comment: Interpretation: Positive for Influenza Type A. This test can not distinguish influenza A virus subtypes. For example, this test cannot distinguish influenza infections caused by novel influenza A viruses versus seasonal influenza A viruses. NASAL STRUCTURE / Unknown 05/24/2024 4:48 PM CONSTRUCTION QUALITY CONTROL MANAGER Tereso Schuster DIGITAL MANAGER MICROBIOLOGY - GENERAL KEVIN RENTERIA Final Result [facility] [address] [place] [address], [place] * XR CHEST PA+LAT (05/24/2024 4:41 PM CONSTRUCTION QUALITY CONTROL MANAGER) Anatomical Region Laterality Modality Chest Radiographic Abigail ging 05/24/2024 4:51 PM CONSTRUCTION QUALITY CONTROL MANAGER Impressions 05/24/2024 4:51 PM CONSTRUCTION QUALITY CONTROL MANAGER =====IMPRESSION:===== 1. Cardiomegaly without evidence of CHF. Ordered By: TERESO SCHUSTER Interpreted By: Luther Hernandez MD, 05/24/2024 4:51 PM Narrative 05/24/2024 4:51 PM CONSTRUCTION QUALITY CONTROL MANAGER [address] [address] Examination: Chest x-ray 2 view Exam date/time: 05/24/2024 4:34 PM Reason For Exam: cough and sob Comparison: 10/15/2021 Technique: PA and lateral views of the chest were obtained. Findings: Shallow inspiration. Mild cardiomegaly similar to previous study. Thoracic aorta remains ectatic and tortuous similar to previous study. Left subclavian transvenous pacer lead placements are unchanged. Pulmonary vasculature unremarkable. No acute pulmonary parenchymal opacity. No significant pleural effusion. Procedure Note Luther Hernandez MD - 05/24/[address] [address] Examination: Chest x-ray 2 view Exam date/time: 05/24/2024 4:34 PM Reason For Exam: cough and sob Comparison: 10/15/2021 Technique: PA and lateral views of the chest were obtained. Findings: Shallow inspiration. Mild cardiomegaly similar to previousstudy. Thoracic aorta remains ectatic and tortuous similar to previousstudy. Left subclavian transvenous pacer lead placements are unchanged.Pulmonary vasculature unremarkable. No acute pulmonary parenchymalopacity. No significant pleural effusion. =====IMPRESSION:===== 1. Cardiomegaly without evidence of CHF. Ordered By: TERESO SCHUSTER Interpreted By: Luther Hernandez MD, 05/24/2024 4:51 PM Tereso Schuster DIGITAL MANAGER GENERAL IMAGING Final Resul t * (ABNORMAL) HEMOGLOBIN, GLYCATED (10/09/2021 7:16 AM CDT) HGB A1C 7.8(H) <5.7 % 10/09/2021 12:09 PM CDT [facility] Comment: ADA GUIDELINES 2010 5.7 TO 6.4% INCREASED RISK OF DIABETES > OR = 6.5% CONSISTENT WITH DIABETES ESTIMATED AVG GLUCOSE 177 mg/dL 10/09/2021 12:09 PM CDT [facility] 10/09/2021 7:16 AM CDT us Deedee Spears MD LABORATORY Final Resul t [facility] [address] [place] [address], * (ABNORMAL) LIPID PANEL (10/09/2021 7:16 AM CDT) CHOLESTEROL 192 <200 MG/DL 10/09/2021 8:31 AM CDT [facility] TRIGLYCERIDES 160(H) <150 MG/DL 10/09/2021 8:31 AM CDT [facility] HDL 37(L) >40.0 MG/DL 10/09/2021 8:31 AM CDT [facility] LDL (CALCULATED) 123(H) <100 MG/DL 10/09/2021 8:31 AM T [facility] NON HDL CHOLESTEROL 155(H) <130 MG/DL 10/09/2021 8:31 AM T [facility] CHOL/HDL RATIO 5.2(H) 0.0 - 4.5 10/09/2021 8:31 AM CDT [facility] VLDL CALCULATION 32 5 - 55 MG/DL 10/09/2021 8:31 AM CDT [facility] LIPID INTERPRETATION 10/09/2021 8:31 AM T [facility] Comment: NIH CONCENSUS REPORT RECOMMENDATIONS: ADULT CHILD LOW RISK: CHOLESTEROL <200 <170 TRIGLYCERIDE <150 --- HDL >=60 --- LDL <100 <110 BORDERLINE: CHOLESTEROL 200-239 170-199 TRIGLYCERIDE 150-199 --- HDL 40-59 --- LDL 100-159 110-129 HIGH RISK: CHOLESTEROL >=240 >=200 TRIGLYCERIDE >=200 --- HDL <40 --- LDL >=160 >=130 10/09/2021 7:16 AM CDT Deedee Spears MD LABORATORY Final Resul t [facility] [address] [place] [address], [place] [phone] from Last 3 Months or Most Recently Relevant to Health Maintenance Insurance MEDICARE MEDICARE Advance Directives * Full Code (Latest Code Status on File) Date Activated Date Inactivated Comments 11/01/2021 4:27 PM 11/30/2021 7:23 AM * Full Code Date Activated Date Inactivated Comments 10/08/2021 7:36 PM 10/16/2021 4:35 PM * Full Code Date Activated Date Inactivated Comments 10/02/2019 3:37 PM 10/02/2019 8:42 PM * Full Code Date Activated Date Inactivated Comments 09/30/2019 11:10 PM 10/02/2019 3:37 PM Care Teams Consumer Education Specialist Relationship Specialty Start Date End Date Montana Warren II, MD [address] [place], [place] [id number] PCP - General FAMILY PRACTICE 11/16/22 Jeronimo Brito MD [facility] [address] [place], [place] [id number] Consulting Physician INTERVENTIONAL CARDIOLOGY 10/08/21
--- OUTSIDE RECORDS SUMMARY | 2024-08-13 14:19 | XMS_ITS | Encounter Summary ---
Author Organization [facility] Address [address] [place] [address] Care Team Providers Care Wharf Attendant Name Role Phone Migue Tam MD Primary Care Provider [phone] Jeronimo Brito MD Unavailable [phone] Briana BARDALES MD, Montana Coughlin Primary Care Provider Encounter Details Date Type Department Care Team (Late st Contact Info) Description 10/03/2019 Hospital Follow-up Call [facility] [place] [address] Jazz Jason, RN Social History Tobacco Use Types Packs/Day Years Used Date Smoking Tobacco: Former Pipe Q uit: 1980 Smokeless Tobacco: Never Alcohol Use Standard Drinks/Week Comments Yes 0 [...] Sex Assigned at Male 05/24/2024 4:06 PM DIE CUT OPERATOR Legal Sex Male 7:33 PM CDT Gender Identity Not on file Sexual Orientation Not on file COVID-19 Exposure Response Date Recorded In the last month, have you been in contact with someone who was confirmed or suspected to have Coronavirus / COVID-19? No / Unsure 09/30/2019 3:37 PM CDT documented as of this encounter Functional Status * RETIRED Are you deaf or do you have serious difficulty hearing Answer Date of Assessment Author Status No 10/02/2019 5:09 PM CDT Activ e * RETIRED Are you blind or do you have serious difficulty seeing, even when wearing glasses? Answer Date of Assessment Author Status No 10/02/2019 5:09 PM CDT Activ e * Do you have serious difficulty walking or climbing stairs? Answer Date of Assessment Author Status No 10/02/2019 5:09 PM CDT Ellen Richmond RN Active * Do you have difficulty dressing or bathing? Answer Date of Assessment Author Status No 10/02/2019 5:09 PM ZACKERYT Ellen Richmond RN Active * Because of a physical, mental, or emotional condition, do you have difficulty doing errands alone such as visiting a doctor's office or shopping? Answer Date of Assessment Author Status No 10/02/2019 5:09 PM Ellen Zapata RN Active documented as of this encounter Mental Status * Because of a physical, mental, or emotional condition, do you have serious difficulty concentrating, remembering, or making decisions? Answer Entry Date Author Status No 10/02/2019 5:09 PM Ellen Zapata RN Active documented in this encounter Plan of Treatment Upcoming Encounters Date Type Department Care Team (Late st Contact Info) Description 09/23/2024 3:10 PM CDT Allied Health/Nurse Visit [place] [facility] [address] [place] [address] Jeronimo Brito MD [facility]. [facility] [address] [place] [address] Brenda Ayon MD [facility]. [place] [address] [place] [address] 04/09/2025 1:30 PM DIE CUT OPERATOR Office Visit [place] [facility], [facility] [address] [place] [address] Brenda Ayon MD [facility]. [address] [id number] documented as of this encounter Visit Diagnoses Not on filedocumented in this encounter Additional Health Concerns Infection Onset Date Last Indicated Resolved Time COVID-19 Rule Out 11/30/2020 11/30/2020 11/30/2020 5:38 PM CDT COVID-19 Confirmed 11/30/2020 11/30/2020 12:35 AM CDT COVID-19 Rule Out 10/08/2021 10/08/2021 10/08/2021 5:51 PM CDT COVID-19 Rule Out 05/24/2024 05/24/2024 05/24/2024 5:09 PM DIE CUT OPERATOR Influenza - Seasonal 05/24/2024 05/24/2024 025 12:32 AM DIE CUT OPERATOR documented as of this encounter Care Teams Wharf Attendant Relationship Specialty Start Date End Date Migeu Tam MD PCP - General FAMILY PRACTICE 04/03/20 11/15/22 Montana Warren II, MD [address] [place] [id number] PCP - General FAMILY PRACTICE 11/16/22 Jeronimo Brito MD Three [facility]. [facility] [address] [place], [place] [phone] Consulting Physician INTERVENTIONAL CARDIOLOGY 10/08/21 documented as of this encounter
--- OUTSIDE RECORDS SUMMARY | 2024-08-13 14:19 | XMS_ITS | Clinical Summary ---
Author Organization [facility] Address [address] [place] [address] Care Team Providers Care Inshore Undersea Warfare Officer Name Role Phone Jani Dunn MD Unavailable [phone] Allergies Active Allergy Reactions Criticality Noted Date Comments Metformin Diarrhea Low 04/15/2013 Medications ibuprofen (ADVIL,MOTRIN) 200 mg tab/cap Take 400 mg by mouth every 8 (eight) hours as needed Active atorvastatin (LIPITOR) 40 mg tablet Take 1 tablet (40 mg total) by mouth daily 10/08/19 21 Active Eliquis 5 mg tablet TAKE 1 TABLET BY MOUTH TWICE DAILY AND YOU MUST KEEP UPCOMING APPOINTMENT FOR FUTURE REFILLS 60 tablet 2 04/21/19 22 Active empagliflozin (JARDIANCE) 25 mg tabletIndications: type 2 diabetes mellitus Take 1 tablet (25 mg total) by mouth daily 30 tablet 06/22/19 22 Active Additional Information Patient not taking.Reported on 07/11/2022 blood glucose diagnostic (glucose blood) stripIndications:U ncontrolled type 2 diabetes mellitus with hyperglycemia (HCC) Use one time daily as directed. 100 each 1 06/26/19 22 Active lancets miscIndications:Un controlled type 2 diabetes mellitus with hyperglycemia (HCC) Use one time daily as directed. 100 each 1 06/26/19 22 Active flash glucose sensor (FreeStyle Danay 10 Day Sensor) kitIndications:Unc ontrolled type 2 diabetes mellitus with hyperglycemia (HCC) 1 each daily 1 kit 08/04/19 22 Active pen needle, diabetic (Pen Needle) 32 gauge x 32 needleIndications: Uncontrolled type 2 diabetes mellitus with hyperglycemia (HCC) Use as directed once a day. 100 each 2 10/01/19 22 Active digoxin (LANOXIN) 125 mcg (0.125 mg) tablet Take 1 tablet (0.125 mg total) by mouth daily 10/18/19 22 Active furosemide (LASIX) 40 mg tabletIndications: Left leg cellulitis Take 1 tablet (40 mg total) by mouth 2 (two) times a day 180 tablet 3 12/29/19 22 Active magnesium oxide (MAG-OX) 400 mg (241.3 mg elemental magnesium) tablet Take 1 tablet by mouth once daily 90 tablet 03/29/20 22 Active acetaminophen (TYLENOL) 500 mg tablet Take 1 tablet (500 mg total) by mouth every 6 (six) hours as needed for pain Active azithromycin (ZITHROMAX) 250 mg tabletIndications: Bronchitis Take 2 tabs (500 mg) by mouth today, than 1 daily for 4 days. 6 tablet 07/12/19 23 Active guaiFENesin-codein e (GUAITUSS AC) liquid 100-10 mg/5 mLIndications:Bron chitis Take 5-10 mL by mouth every 4 (four) hours as needed for cough 120 mL 07/12/19 23 Active LANTUS 100 unit/mL (3 mL) pen for injectionIndicatio ns:Uncontrolled type 2 diabetes mellitus with hyperglycemia (HCC) INJECT 25 UNITS SUBCUTANEOUSLY NIGHTLY 15 mL 08/09/19 23 Active lisinopriL (PRINIVIL,ZESTRIL) 2.5 mg tabletIndications: Essential (primary) hypertension Take 1 tablet by mouth once daily 90 tablet 09/06/19 23 Active metoprolol XL (TOPROL-XL) 25 mg extended release tablet Take 1 tablet by mouth once daily 30 tablet 02/11/20 23 Active levothyroxine (SYNTHROID) 100 mcg tabletIndications: Other specified hypothyroidism Take 1 tablet by mouth once daily 30 tablet 03/28/20 23 Active Active Problems Problem Noted Date Diagnosed Date Atrial fibrillation with rapid ventricular respo nse 06/07/2021 Assessment & Plan (06/21/2021 4:52 PM CDT): Back to Rate Controlled Asymptomatic Afib. On Anticoagulation and Rate Controlled Medication. Recommend aggressive control of Diabetes with insulin. Uncontrolled type 2 diabetes mellitus with hyper glycemia 10/26/2020 Assessment & Plan (07/29/2021 3:15 PM CDT): Overall Condition Chronic Condition: Uncontrolled. Treatment: Recommended Therapeutic Lifestyle Modification and Medication Changes: REduce Insulin to 20 units as FBS around close to 100. Follow up in 3 months Assessment & Plan (06/21/2021 4:53 PM CDT): Overall Condition Chronic Condition: Uncontrolled. Treatment: New Medication: Started in Hospital, Recommended Therapeutic Lifestyle Modification and Medication Changes: Increase Insulin to 25 units daily. Follow up in 1 month Needs Fasting Blood Sugar for next 7 days. Assessment & Plan (02/02/2021 11:36 AM CDT): Overall Condition Chronic Condition: Uncontrolled. Treatment: New Medication: Trial of Metformin. Aggrssive weight loss. and Recommended Therapeutic Lifestyle Modification Follow up in 3 months Assessment & Plan (11/23/2020 2:08 PM CDT): Overall Condition Chronic Condition: Uncontrolled. Treatment: New Medication: Add Jardiance to Tradjenta as prescribed below. Follow up in 1 month Assessment & Plan (10/26/2020 12:51 PM CDT): Overall Condition New Diagnosis. Treatment: New Medication: Start Januvia and Recommended Therapeutic Lifestyle Modification Follow up in 3 months Acute on chronic diastolic c ongestive heart failure ([facility]) 09/30/2020 Assessment & Plan (09/30/2020 9:34 AM CDT): Chronic, stability unknown-advised follow-up this week with web feeder and ordered chest xray. 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 All the elements of the plan were completed as outlined by CMS. A copy of the prevention plan was given to the patient. I reviewed Medicare Wellness Questionnaire (other physicians involved in care, depression screen, advanced directives), cognitive/memory, and functional assessment. Forms scanned in progress notes. I reviewed and updated the complete problem list, medication list, family history, and immunization records with the patient. I provided preventive counseling and early detection interventions to the patient through health maintenance update and summary of today's office visit. Personalized Prevention Plan Services (PPPS): Immunization: [id number]: Risk and benefits discussed with patient. Patient voiced understandings; and refused. [id number]: Risk and benefits discussed with patient. Patient voiced understandings; and refused. Influenza: Risk and benefits discussed with patient. Patient voiced understandings; and refused. HepatitisB: Not Applicable. Tetanus: Risk and benefits discussed with patient. Patient voiced understandings; and refused. Shingles: Risk and benefits discussed with patient. Patient voiced understandings; and refused. Cancer Screening: Mammogram: Not Applicable. PAP Smear: Not Applicable. Prostate Cancer Screening: Not Applicable. Colorectal Cancer Screening: Not Applicable. Lung Cancer Screening: Not Applicable. Others: Diet: Lifestyle education regarding diet discussed. Exercise: Encouraged regular daily exercise. Medication Use: Aspirin use discussion. DEXA Scan: Not Applicable. Glaucoma Screening: Recommended Annually. Audio Screen ordered? No Diabetes: Not Applicable. Annual Labs: Ordered For Today. Abdominal Aortic Aneurysm Screening: Not Applicable. HIV Screening: Not Applicable. Smoking cessation Counselling: Not Applicable. Subsequent Annual Wellness Visit: Annually Assessment & Plan (02/01/2021 3:21 PM CDT): Patient here for annual Medicare wellness visit and for review of complete medical problem list. All the elements of the plan were completed as outlined by CMS. A copy of the prevention plan was given to the patient. I reviewed Medicare Wellness Questionnaire (other physicians involved in care, depression screen, advanced directives), cognitive/memory, and functional assessment. Forms scanned in progress notes. I reviewed and updated the complete problem list, medication list, family history, and immunization records with the patient. I provided preventive counseling and early detection interventions to the patient through health maintenance update and summary of today's office visit. Personalized Prevention Plan Services (PPPS): Immunization: [id number]: Risk and benefits discussed with patient. Patient voiced understandings; and refused. [id number]: Risk and benefits discussed with patient. Patient voiced understandings; and refused. Influenza: Risk and benefits discussed with patient. Patient voiced understandings; and refused. HepatitisB: Not Applicable. Tetanus: Risk and benefits discussed with patient. Patient voiced understandings; and refused. Shingles: Risk and benefits discussed with patient. Patient voiced understandings; and refused. Cancer Screening: Mammogram: Not Applicable. PAP Smear: Not Applicable. Prostate Cancer Screening: Not Applicable. Colorectal Cancer Screening: Not Applicable. Lung Cancer Screening: Not Applicable. Others: Diet: Lifestyle education regarding diet discussed. Exercise: Encouraged regular daily exercise. Medication Use: Aspirin use discussion. DEXA Scan: Not Applicable. Glaucoma Screening: Recommended Annually. Audio Screen ordered? No Diabetes: Not Applicable. Annual Labs: Ordered For Today. Abdominal Aortic Aneurysm Screening: Not Applicable. HIV Screening: Not Applicable. Smoking cessation Counselling: Not Applicable. Subsequent Annual Wellness Visit: Annually Assessment & Plan (10/26/2020 11:16 AM CDT): Patient here for annual Medicare wellness visit and for review of complete medical problem list. All the elements of the plan were completed as outlined by CMS. A copy of the prevention plan was given to the patient. I reviewed Medicare Wellness Questionnaire (other physicians involved in care, depression screen, advanced directives), cognitive/memory, and functional assessment. Forms scanned in progress notes. I reviewed and updated the complete problem list, medication list, family history, and immunization records with the patient. I provided preventive counseling and early detection interventions to the patient through health maintenance update and summary of today's office visit. Personalized Prevention Plan Services (PPPS): Immunization: [id number]: Risk and benefits discussed with patient. Patient voiced understandings; and refused. [id number]: Risk and benefits discussed with patient. Patient voiced understandings; and refused. Influenza: Risk and benefits discussed with patient. Patient voiced understandings; and refused. HepatitisB: Not Applicable. Tetanus: Risk and benefits discussed with patient. Patient voiced understandings; and refused. Shingles: Risk and benefits discussed with patient. Patient voiced understandings; and refused. Cancer Screening: Mammogram: Not Applicable. PAP Smear: Not Applicable. Prostate Cancer Screening: Not Applicable. Colorectal Cancer Screening: Not Applicable. Lung Cancer Screening: Not Applicable. Others: Diet: Lifestyle education regarding diet discussed. Exercise: Encouraged regular daily exercise. Medication Use: Aspirin use discussion. DEXA Scan: Not Applicable. Glaucoma Screening: Recommended Annually. Audio Screen ordered? No Diabetes: Not Applicable. Annual Labs: Ordered For Today. Abdominal Aortic Aneurysm Screening: Not Applicable. HIV Screening: Not Applicable. Smoking cessation Counselling: Not Applicable. Subsequent Annual Wellness Visit: Annually Assessment & Plan (09/03/2019 12:46 PM CDT): Patient here for annual Medicare wellness visit and for review of complete medical problem list. All the elements of the plan were completed as outlined by CMS. A copy of the prevention plan was given to the patient. I reviewed Medicare Wellness Questionnaire (other physicians involved in care, depression screen, advanced directives), cognitive/memory, and functional assessment. Forms scanned in progress notes. I reviewed and updated the complete problem list, medication list, family history, and immunization records with the patient. I provided preventive counseling and early detection interventions to the patient through health maintenance update and summary of today's office visit. Personalized Prevention Plan Services (PPPS): Immunization: [id number]: Risk and benefits discussed with patient. Patient voiced understandings; and refused. [id number]: Risk and benefits discussed with patient. Patient voiced understandings; and refused. Influenza: Risk and benefits discussed with patient. Patient voiced understandings; and refused. HepatitisB: Not Applicable. Tetanus: Risk and benefits discussed with patient. Patient voiced understandings; and refused. Shingles: Risk and benefits discussed with patient. Patient voiced understandings; and refused. Cancer Screening: Mammogram: Not Applicable. PAP Smear: Not Applicable. Prostate Cancer Screening: Not Applicable. Colorectal Cancer Screening: Not Applicable. Lung Cancer Screening: Not Applicable. Others: Diet: Lifestyle education regarding diet discussed. Exercise: Encouraged regular daily exercise. Medication Use: Aspirin use discussion. DEXA Scan: Not Applicable. Glaucoma Screening: Recommended Annually. Audio Screen ordered? No Diabetes: Not Applicable. Annual Labs: Ordered For Today. Abdominal Aortic Aneurysm Screening: Not Applicable. HIV Screening: Not Applicable. Smoking cessation Counselling: Not Applicable. Subsequent Annual Wellness Visit: Annually Essential (primary) hypertension 08/31/2017 Vitamin D deficiency 07/17/2013 Shortness of breath Resolved Problems Problem Noted Date Diagnosed Date Resolved Date Left leg cellulitis 11/23/2020 06/08/19 Assessment & Plan (11/23/2020 2:07 PM CDT): Overall Condition: New Acute Problem Treatment: New Medication: Bactrim PO as prescribed pluse Bactroban. Follow up PRN Leg swelling 09/30/2020 06/07/2021 Assessment & Plan (09/30/2020 9:21 AM CDT): Chronic bilateral leg swelling, worsening per patient, but upon review of records, appears stable-considered increasing furosemide by 40 mg daily until he stated he was taking 2-40 mg tablets BID, initially informed director of medical education AND provider at today's visit that he [...] patient is actually taking, advised to call web feeder today for an appointment this week to [...] pain/bloating, back pain, or worsening leg swelling. High risk medication use 09/30/202010/2021 Assessment & Plan (09/30/2020 9:34 AM CDT): Ordered CMP due to diuretic therapy, reportedly taking dose higher than prescribed. NSTEMI (non-ST elevated myoc ardial infarction) ([facility]) 09/30/2019 06/07/2021 Pneumonia of left lower lobe due to infectious organism 07/21/2017 06/07/2021 Cellulitis of right lower extremity 07/21/2017 06/07/2021 Coronavirus infection 2021 Immunizations Immunization Administration Dates Next Due Influenza, Unspecified 12/02/2021(Deferred: Nakia ent decision) Pfizer SARS-CoV-2 Monovalent Vaccination (12+ Yrs) PURPLE 06/14/2020 Surgical History Surgery Date Site/Laterality Comments CARDIOVERSION 04/03/2015 - 04/02/2016 CARDIAC CATHETERIZATION CATARACT EXTRACTION CARDIAC PACEMAKER PLACEMENT Medical History Medical History Date Comments Hyperlipidemia Hypothyroidism Atrial fibrillation (HCC) Systolic CHF (HCC) Nonischemic cardiomyopathy (HCC) Hypertension Fibromyalgia RBBB (right bundle branch block) Family History Medical History Relation Name Comments Heart disease Father Colon cancer Mother Relation Name Status Comments Father (Age 84) Mother (Age 74) Social History Tobacco Use Types Packs/Day Years Used Date Smoking Tobacco: Never Smokeless Tobacco: Never Alcohol Use Standard Drinks/Week Comments No 0 (1 standard drink = 0.6 oz pur e alcohol) AUDIT-C Answer Date Recorded Q1: How often do you have a drink containing alc ohol? Monthly or less 07/11/2022 Q2: How many drinks containi ng alcohol do you have on a typical day when you are drinking? 1 or 2 07/11/2022 Q3: How often do you have si x or more drinks on one occasion? 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 Gender Identity Not on file Sexual Orientation Not on file Obstetrics History Last Filed Vital Signs Vital Sign Reading Time Taken Comments Blood Pressure 150/78 07/11/2022 10:57 AM CDT Pulse 92 07/11/2022 10:57 AM CDT Temperature 36.6 C (97.8 F) 07/11/2022 10:57 AM CDT Respiratory Rate 16 07/11/2022 10:57 AM CDT Oxygen Saturation 97% 07/11/2022 10:57 AM CDT Inhaled Oxygen Concentration - - Weight 89.4 kg (197 lb) 07/11/2022 10:57 AM CDT Height 177.8 cm (5' 10 ) 07/11/2022 10:57 AM CDT Body Mass Index 28.27 07/11/2022 10:57 AM CDT Plan of Treatment Health Maintenance Due Date Last Done Comments Albumin Creatinine Ratio, Urine 1935 DTaP/Tdap/Td Vaccine (1 - Tdap) 1948 Hepatitis B Screening 11/27/1955 Pneumococcal vaccine 65+ (1 of 2 - PCV) 1956 Zoster Vaccine (1 of 2) 11/27/1987 Foot Exam 11/23/2021 11/23/2020 eGFR 06/11/2022 06/11/2021, 03/0 12/2021, 06/08/2021, Additional history exists Lipid Panel 10/09/2022 10/09/2021, 03/0 11/2021, 10/08/2020, Additional history exists Depression Screening 10/28/2022 10/28/2021, 02/01/2021, 11/23/2020, Additional history exists Fall Risk Assessment 10/28/2022 10/28/2021, 06/10/2021, 02/01/2021, Additional history exists Well Visit 65+ 10/28/2022 10/28/2021, 09/03/2019 Dilated Eye Exam 12/23/2022 12/23/2020 Hemoglobin A1C 01/10/2023 07/11/2022, 03/0 11/2021, 02/01/2021 Covid-19 Vaccine (3 - 2023-2 5 season) 2023 12/25/2020, 06/14/2020 Influenza Vaccine (Season Ended) 2024 Procedures Procedure Name Priority Date/Time Associated Diagnosis Comments POCT HEMOGLOBIN A1C Routine 07/11/2022 1 1:34 AM CDT Uncontrolled type 2 diabetes mellitus with hyperglycemia (HCC) EGFR Routine 06/11/2021 6:18 AM DESIZING PAD OPERATOR LIPID PANEL Routine 06/08/2021 3:50 AM DESIZING PAD OPERATOR DIABETIC EYE EXAM Routine 12/23/2020 from Last 3 Months or Most Recently Relevant to Health Maintenance Results * (ABNORMAL) POCT hemoglobin A1c (07/11/2022 11:34 AM CDT) Hemoglobin A1C, POC 7.4 % Blood 07/11/2022 11:3 4 AM CDT us Migue Tam MD POINT OF CARE TEST ORDERABLES Fi nal Result * eGFR (06/11/2021 6:18 AM DESIZING PAD OPERATOR) eGFR 88 mL/min/1. 73 m2 [facility] Comment: Interpretive Data Reference Interval Normal >/= 90 mL/min/1.73m2 Mildly decreased* 60 - 89 mL/min/1.73m2 Mildly to moderately decreased 45 - 59 mL/min/1.73m2 Moderately to severely decreased 30 - 44 mL/min/1.73m2 Severely decreased 15 - 29 mL/min/1.73m2 Kidney Failure < 15 mL/min/1.73m2 *Relative to young adult level Estimated glomerular filtration rate is determined by the 2020 CKD-EPI equation recommended by the National Kidney Foundation (A Unifying Approach to GFR Estimation: Recommendations of the NKF-ASK Task Force on Reassessing the Inclusion of Race in Diagnosing Kidney Disease, JASN 2020). The CKD-EPI equation should not be used for patients with unstable renal function and has not been validated in children and those over 70. Current interpretive data was last reviewed 2021. Testing performed by: [facility], [address] [place] [address]., [id number] Blood 06/11/2021 6:18 AM DESIZING PAD OPERATOR 06/11/2021 7:25 AM DESIZING PAD OPERATOR us Aron Mart MD LAB BLOOD ORDERABLES Final Result [facility] [address] Department [place] [address] * (ABNORMAL) Lipid panel (06/08/2021 3:50 AM DESIZING PAD OPERATOR) Cholesterol 199 30 - 199 mg/dL [facility] BARBOSA Comment: Interpretive Data Ages < or = 19 years Acceptable: <170 mg/dL Borderline high: 170-199 mg/dL High: >or= 200 mg/dL Ages > or = 20 years Desirable: <200 mg/dL Borderline high: 200-239 mg/dL High: >or= 240 mg/dL Literature References: 1. Expert Panel on Integrated Guidelines for Cardiovascular Health and Risk Reduction in Children and Adolescents. Pediatrics 2011;128:S213 2. NCEP Expert Panel. Circulation 2004;110:227 Current Interpretive Data was last revised on 2017. Testing performed by: [address] [address] Triglycerides 207(H) <=149 mg/dL ANGELA Comment: Interpretive Data Ages < or = 9 years Acceptable: <75 mg/dL Borderline high: 75-99 mg/dL High: >or= 100 mg/dL Ages 10 to 20 years Acceptable: <90 mg/dL Borderline high: 90-129 mg/dL High: >or= 130 mg/dL Ages > or = 20 years Desirable: <150 mg/dL Borderline high: 150-199 mg/dL High: 200-499 mg/dL Very high: >or= 499 mg/dL Literature References: 1. Expert Panel on Integrated Guidelines for Cardiovascular Health and Risk Reduction in Children and Adolescents. Pediatrics 2011;128:S213 2. NCEP Expert Panel. Circulation 2004;110:227 Current Interpretive Data was last revised on 2017. Testing performed by: [address] [address] HDL 37(L) >=40 mg/dL ANGELA Comment: Interpretive Data Ages < or = 19 years Acceptable: >45 mg/dL Borderline low: 40-45 mg/dL Low: <40 mg/dL Ages > or = 20 years Desirable: >or= 60 mg/dL Low: <40 mg/dL Literature References: 1. Expert Panel on Integrated Guidelines for Cardiovascular Health and Risk Reduction in Children and Adolescents. Pediatrics 2011;128:S213 2. NCEP Expert Panel. Circulation 2004;110:227 Current Interpretive Data was last revised on 2017. Testing performed by: [address] [address] LDL, calculated 121 <=129 mg/dL ANGELA Comment: Interpretive Data Ages < or = 19 years Acceptable: <110 mg/dL Borderline high: 110-129 mg/dL High: >or= 130 mg/dL Ages > or = 20 years Optimal: <100 mg/dL Near optimal: 100-129 mg/dL Borderline high: 130-159 mg/dL High: >160 mg/dL Literature References: 1. Expert Panel on Integrated Guidelines for Cardiovascular Health and Risk Reduction in Children and Adolescents. Pediatrics 2011;128:S213 2. NCEP Expert Panel. Circulation 2004;110:227 Current Interpretive Data was last revised on 2017. Testing performed by: [address] [address] Non-HDL Cholesterol 162 mg/dL ANGELA Comment: Interpretive Data Ages < or = 19 years Acceptable: <120 mg/dL Borderline high: 120-144 mg/dL High: >145 mg/dL Ages > or = 20 years When triglycerides are >200 mg/dL, Non-HDL cholesterol is a secondary target of therapy with treatment goals that are 30 mg/dL greater than the LDL cholesterol target. Literature References: 1. Expert Panel on Integrated Guidelines for Cardiovascular Health and Risk Reduction in Children and Adolescents. Pediatrics 2011;128:S213 2. NCEP Expert Panel. Circulation 2004;110:227 Current Interpretive Data was last revised on 2017. Testing performed by: [address] [address] Chol/HDL ratio 5 ANGELA Comment:Testing performed by : [address] [address] Blood 06/08/2021 3:50 AM DESIZING PAD OPERATOR 06/08/2021 4:12 AM DESIZING PAD OPERATOR us Tereso Mota MD LAB BLOOD ORDERABLES Final Result [facility] [address] Department [place] [address] * Diabetic Eye Exam (12/23/2020) us Historical Provider HEALTH MAINTENANCE Final Result from Last 3 Months or Most Recently Relevant to Health Maintenance Insurance MEDICARE MEDICARE Advance Directives For more information, please contact: [phone] * Full Code (Latest Code Status on File) Date Activated Date Inactivated Comments 06/07/2021 11:39 PM 06/11/2021 7:43 PM * Full Code Date Activated Date Inactivated Comments 07/18/2017 1:01 AM 07/22/2017 1:48 PM Care Teams Inshore Undersea Warfare Officer Relationship Specialty Start Date End Date Jani Dunn MD Consulting Physician Cardiovascular Disease 06/11/21
--- OUTSIDE RECORDS SUMMARY | 2024-08-13 14:19 | XMS_ITS | Referral Summary ---
Author Organization [facility] Address [address] [place] [address] Care Team Providers Care Product Expert Name Role Phone Jani Dunn MD Unavailable [phone] Allergies Active Allergy Reactions Criticality Noted Date [...] on chronic diastolic c ongestive heart failure ([facility]) 09/30/2020 Assessment & Plan (09/30/2020 9:34 AM CDT): Chronic, stability unknown-advised follow-up this week with repairer typewriter and ordered chest xray. 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 Personalized Prevention Plan Services (PPPS): Immunization: [id number]: Risk and benefits discussed with patient. Patient voiced understandings; and refused. [id number]: Risk and benefits discussed with patient. Patient [...] visit. Personalized Prevention Plan Services (PPPS): Immunization: [id number]: Risk and benefits discussed with patient. Patient voiced understandings; and refused. [id number]: Risk and benefits discussed with patient. Patient [...] visit. Personalized Prevention Plan Services (PPPS): Immunization: [id number]: Risk and benefits discussed with patient. Patient voiced understandings; and refused. [id number]: Risk and benefits discussed with patient. Patient [...] visit. Personalized Prevention Plan Services (PPPS): Immunization: [id number]: Risk and benefits discussed with patient. Patient voiced understandings; and refused. [id number]: Risk and benefits discussed with patient. Patient [...] taking 2-40 mg tablets BID, initially informed medical billing and coding specialist AND provider at today's visit that he [...] patient is actually taking, advised to call repairer typewriter today for an appointment this week to [...] prescribed. 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 Gender Identity Not on file Sexual Orientation [...] 07/11/2022 10:57 AM CDT Plan of Treatment Not on file Procedures Procedure Name Priority Date/Time Associated Diagnosis Comments POCT HEMOGLOBIN A1C Routine 07/11/2022 1 1:34 AM CDT Uncontrolled type 2 diabetes mellitus with hyperglycemia (HCC) EGFR Routine 06/11/2021 6:18 AM HOT REPAIRMAN LIPID PANEL Routine 06/08/2021 3:50 AM HOT REPAIRMAN DIABETIC EYE EXAM Routine 12/23/2020 from Last 3 Months or Most Recently Relevant to Health Maintenance Results * (ABNORMAL) POCT hemoglobin A1c (07/11/2022 11:34 AM CDT) Hemoglobin A1C, POC 7.4 % Blood 07/11/2022 11:3 4 AM CDT us Migue Tam MD POINT OF CARE TEST ORDERABLES Fi nal Result * eGFR (06/11/2021 6:18 AM HOT REPAIRMAN) eGFR 88 mL/min/1. 73 m2 ANGELA BARBOSA [...] last reviewed 2021. Testing performed by: [facility], [address] [place] [address], [place]., [address] Blood 06/11/2021 6:18 AM HOT REPAIRMAN 06/11/2021 7:25 AM HOT REPAIRMAN us Aron Mart MD LAB BLOOD ORDERABLES Final Result ANGELA [address] [facility] [place] [address] * (ABNORMAL) Lipid panel (06/08/2021 3:50 AM HOT REPAIRMAN) Cholesterol 199 30 - 199 mg/dL ANGELA [...] last revised on 2017. Testing performed by: [address] [address] Triglycerides 207(H) <=149 mg/dL ANGELA Comment: Interpretive [...] last revised on 2017. Testing performed by: [address] [address] HDL 37(L) >=40 mg/dL ANGELA Comment: Interpretive [...] last revised on 2017. Testing performed by: [address] [address] LDL, calculated 121 <=129 mg/dL ANGELA BARBOSA Comment: Interpretive Data Ages [...] last revised on 2017. Testing performed by: [address] [address] Non-HDL Cholesterol 162 mg/dL ANGELA BARBOSA Comment: Interpretive Data Ages [...] last revised on 2017. Testing performed by: [address] [address] Chol/HDL ratio 5 ANGELA BARBOSA Comment:Testing performed by : [address] [address] Blood 06/08/2021 3:50 AM HOT REPAIRMAN 06/08/2021 4:12 AM HOT REPAIRMAN us Tereso Mota MD LAB BLOOD ORDERABLES Final Result ANGELA BARBOSA [address] [facility] [place] [address] * Diabetic Eye Exam (12/23/2020) us Historical Provider HEALTH MAINTENANCE Final Result from Last 3 Months or Most Recently Relevant to Health Maintenance Insurance MEDICARE MEDICARE Advance Directives For more information, please contact: [phone] * Full Code (Latest Code Status on File) Date Activated Date Inactivated Comments 06/07/2021 11:39 PM 06/11/2021 7:43 PM * Full Code Date Activated Date Inactivated Comments 07/18/2017 1:01 AM 07/22/2017 1:48 PM Care Teams Product Expert Relationship Specialty Start Date End Date Jani Dunn MD Consulting Physician Cardiovascular Disease 06/11/21
[2024-08-13 20:14] LABS: Basophils Absolute Auto 0.1 K/mm3 (0.0-0.1); Basophils Percent Auto 1.1 % (0.2-1.2); Eosinophils Absolute Auto 0.3 K/mm3 (0-0.3); Eosinophils Percent Auto 3.4 % (0-4.4); Hematocrit 42.6 % (42.0-52.0); Immature Granulocyte Absolute 0.03 K/mm3 (0.00-0.031); Immature Granulocyte Percent A 0.4 % (0-0.5); Lymphocytes Absolute Auto 3.38 K/mm3 (0.9-3.2); Lymphocytes Percent Auto 40.1 % (18.3-44.2); Mean Corpuscular HGB Conc 32.9 g/dl (32-36); Mean Corpuscular Hemoglobin 31.2 pg (26-34); Mean Corpuscular Volume 94.9 fl (80-100); Mean Platelet Volume 12.4 fl (7.4-10.4); Monocytes Absolute Auto 0.6 K/mm3 (0.1-0.6); Neutrophils Absolute Auto 4.1 K/mm3 (1.3-6.7); Platelet Count Result 201 k/mm3 (150-375); Red Blood Count 4.49 M/mm3 (4.6-6.20); Red Cell Distribution Width 13.3 % (11.5-14.5); White Blood Count 8.4 K/mm3 (4.5-10.0)
[2024-08-13 20:29] LABS: Alanine Aminotransferase 13 U/L (6-50); Albumin Level 3.9 g/dL (3.5-5.1); Alkaline Phosphatase 91 U/L (38-126); Anion Gap 7 mmol/L (4-12); Aspartate Amino Transferase 40 U/L (17-59); Bilirubin,Total 0.7 mg/dL (0.2-1.3); Blood Urea Nitrogen 22 mg/dL (9-20); Calcium 8.7 mg/dL (8.4-10.2); Carbon Dioxide 30 mmol/L (22-30); Chloride 105 mmol/L (98-107); Estimated Glomerular Filt Rate > 60; Glucose 193 mg/dL (65-110); Potassium 4.5 mmol/L (3.4-5.0); Sodium 142 mmol/L (137-145)
[2024-08-13 23:24] LABS: Creatinine Urine 129.5 mg/dL
[2024-08-13 23:29] LABS: MALB Creatinine Ratio 22.2 mg/g (0-30); Microalbumin Urine Random 28.7 mg/L (0-16.7)
== END 2024-08-13 14:02 | disposition home or self-care (01) ==
LOC: ANHGOSHLAB 14:02
PROVIDERS: PCP Internal Medicine; Visit Provider Internal Medicine
DX: E11.9 Type 2 diabetes mellitus without complications (principal); Z79.4 Long term (current) use of insulin
CPT/HCPCS: 36415; 80053; 82043; 83036; 85025